=== PATIENT | female | born 1955 | race Caucasian/White ===

== ENCOUNTER 2016-12-02 09:49 | Emergency (ER) | payer BC ==
[2016-12-02 10:44] VITALS: BP 100/64
--- NOTE | 2016-12-02 12:12 | UC ---
Complaint Female HPI - HPI Summary HPI Summary: 5 days of external burning with urination---denies urgency frequency, fevers, chills, nausea, vomiting - History Of Current Complaint Chief Complaint: UCGU Stated Complaint: URINARY COMPLAINT Time Seen by Provider: 12/02/16 10:45 Hx Obtained From: Patient ?: No Onset/Duration: Sudden Onset, Lasting Days - 5, Still Present - seems to be a little better with increasing fluids Timing: Constant Severity Initially: Moderate Severity Currently: Mild Pain Intensity: 4 Pain Scale Used: 0-10 Numeric Character: Burning Aggravating Factor(s): Urination Alleviating Factor(s): Nothing Associated Signs And Symptoms: Negative: Fever, Back Pain, Vaginal Bleeding/ Discharge, Vaginal Discharge, Nausea, Vomiting(# Of Episodes =), Genital Swelling, Genital Blisters, Retained Foregin Body (Specify) - Allergies/Home Medications Allergies/Adverse Reactions: Allergies Allergy/AdvReac Type Severity Reaction Status Date / Time Ciprofloxacin [From Cipro] Allergy muscle Verified 12/02/16 10:44 cramping Prochlorperazine Allergy muscle Verified 12/02/16 10:44 [From Compazine] reaction Sulfamethoxazole Allergy muscle Verified 12/02/16 10:44 w/Trimethoprim cramping [From Septra] Home Medications: Home Medications Cranberry (Vaccinium Macrocarp [Cranberry] 500 mg PO DAILY 12/02/16 [History Confirmed 12/02/16] PMH/Surg Hx/FS Hx/Imm Hx Previously Healthy: Yes Endocrine History Of: Denies: Diabetes Cardiovascular History Of: Denies: Cardiac Disorders, Hypertension Respiratory History Of: Denies: Asthma Cancer History Of: Denies: Breast Cancer - Surgical History Surgical History: Yes Surgery Procedure, Year, and Place: T&A - Family History Known Family History: Positive: None - Social History Occupation: Employed Full-time Lives: With Family Alcohol Use: None Substance Use Type: None Smoking Status (MU): Never Smoked Tobacco Review of Systems Constitutional: Negative Skin: Negative Eyes: Negative ENT: Negative Respiratory: Negative Cardiovascular: Negative Gastrointestinal: Negative Genitourinary: Dysuria Motor: Negative Neurovascular: Negative Musculoskeletal: Negative Neurological: Negative Psychological: Negative All Other Systems Reviewed And Are Negative: Yes Physical Exam Triage Information Reviewed: Yes Appearance: Well-Appearing, No Pain Distress, Well-Nourished Vital Signs: Initial Vital Signs Temp 99.4 F 12/02/16 10:41 Pulse 75 12/02/16 10:41 Resp 16 12/02/16 10:41 BP 100/64 12/02/16 10:41 Pulse Ox 98 12/02/16 10:41 Vital Signs Reviewed: Yes Eye Exam: Normal Eyes: Positive: Conjunctiva Clear ENT Exam: Normal ENT: Positive: Normal ENT inspection, Hearing grossly normal. Negative: Nasal congestion, Nasal drainage, Tonsillar swelling, Tonsillar exudate, Trismus, Muffled/hoarse voice Dental Exam: Normal Neck exam: Normal Neck: Positive: Supple, Nontender, No Lymphadenopathy Respiratory Exam: Normal Respiratory: Positive: Chest non-tender, Lungs clear, Normal breath sounds, No respiratory distress, No accessory muscle use Cardiovascular Exam: Normal Cardiovascular: Positive: RRR, No Murmur, Pulses Normal, Brisk Capillary Refill Abdominal Exam: Normal Abdomen Description: Positive: Nontender, No Organomegaly, Soft Bowel Sounds: Positive: Present Musculoskeletal Exam: Normal Musculoskeletal: Positive: Strength Intact, ROM Intact Neurological Exam: Normal Neurological: Positive: Alert Psychological Exam: Normal Skin Exam: Normal UC Physical Exam Vital Signs On Initial Exam: Initial Vitals Temp Pulse Resp BP Pulse Ox 99.4 F 75 16 100/64 98 12/02/16 10:41 12/02/16 10:41 12/02/16 10:41 12/02/16 10:41 12/02/16 10:41 - Genitalia Exam Female Genitourinary: Normal External Exam, Normal Vaginal Exam Diagnostics - Laboratory Diagnostic Studies Completed/Ordered: UA - WNL Complaint Female Dx - Course Course Of Treatment: increase fluids, continue premarin, lab specimens sent will treat as needed based on lab specimens foolow for a routine disease education specialist appointment this week - Differential Dx/Diagnosis Differential Diagnosis/HQI/PQRI: Pelvic Inflammatory Disease, Sexually Transmitted Disease, Urinary Tract Infection, Other - vaginitis Provider Diagnoses: Dysuria Discharge - Discharge Plan Condition: Stable Disposition: HOME Patient Education Materials: Hydrocortisone (On the skin), Vaginitis (ED), Dysuria (ED) Referrals: Gema Teran MD [Medical Doctor] - 1 Week Justice Cabrera MD [Primary Care Provider] - Additional Instructions: The cause of your irritation is not clear---We have tests for yeast, trich, BV, and urine pending for you--We will call with any positive test results and call in appropriate treatments. This exam is not in place of your routine disease education specialist care that I would encourage you to get in the next couple of weeks
[2016-12-06 16:28] LABS: Mycoplasma hominis Result Negative; Mycoplasma hominis Source URINE; Ureaplasma Source URINE; Ureaplasma parvum PCR Negative; Ureaplasma urealyticum PCR Negative
== END 2016-12-02 12:37 | disposition home or self-care (01) ==
LOC: UCCORT 09:49
DX: R30.0 Dysuria (principal); R09.81 Nasal congestion; J03.90 Acute tonsillitis, unspecified; J35.02 Chronic adenoiditis; Z88.1 Allergy status to other antibiotic agents
CPT/HCPCS: 87086; 87480; 87491; 87510; 87591; 87661; 87798; 99212; G0463

== ENCOUNTER 2017-10-12 09:57 | Emergency (ER) | payer BC ==
--- NOTE | 2017-10-12 10:21 | UC ---
Complaint Female HPI - HPI Summary HPI Summary: 62 year old female presents with painful and increased frequency of urination. - History Of Current Complaint Stated Complaint: URINARY COMPLAINT Time Seen by Provider: 10/12/17 10:21 Hx Obtained From: Patient Onset/Duration: Sudden Onset Timing: Constant Severity Initially: Moderate Severity Currently: Moderate Pain Scale Used: 0-10 Numeric - 8 - Allergies/Home Medications Allergies/Adverse Reactions: Allergies Allergy/AdvReac Type Severity Reaction Status Date / Time Ciprofloxacin [From Cipro] Allergy muscle Verified 10/12/17 10:27 cramping Prochlorperazine Allergy muscle Verified 10/12/17 10:27 [From Compazine] reaction Sulfamethoxazole Allergy muscle Verified 10/12/17 10:27 w/Trimethoprim cramping [From Septra] PMH/Surg Hx/FS Hx/Imm Hx Previously Healthy: Yes - Surgical History Surgical History: Yes Surgery Procedure, Year, and Place: T&A - Family History Known Family History: Positive: None - Social History Alcohol Use: None Substance Use Type: None Smoking Status (MU): Never Smoked Tobacco Review of Systems Constitutional: Negative Skin: Negative Eyes: Negative ENT: Negative Respiratory: Negative Cardiovascular: Negative Gastrointestinal: Negative Genitourinary: Dysuria, Frequency, Urgency Motor: Negative Neurovascular: Negative Musculoskeletal: Negative Neurological: Negative Psychological: Negative All Other Systems Reviewed And Are Negative: Yes Physical Exam Triage Information Reviewed: Yes Vital Signs Reviewed: Yes Eye Exam: Normal ENT Exam: Normal Dental Exam: Normal Neck exam: Normal Neck: Positive: 1 Respiratory Exam: Normal Cardiovascular Exam: Normal Abdominal Exam: Normal Musculoskeletal Exam: Normal Neurological Exam: Normal Psychological Exam: Normal Skin Exam: Normal Complaint Female Dx - Differential Dx/Diagnosis Provider Diagnoses: dysuria. urinary frequency Discharge - Discharge Plan Condition: Stable Disposition: HOME Prescriptions: Nitrofurantoin Monohyd Macro [Macrobid] 100 mg PO BID #14 cap Patient Education Materials: Urinary Tract Infection in Women (ED) Referrals: Justice Cabrera MD [Primary Care Provider] -
[2017-10-12 10:27] VITALS: BP 121/79
--- NOTE | 2017-10-14 06:58 | UC ---
Progress - Progress Note Progress Note: Notify pt NO UTI she should STOP antibiotic and get rechecked if still symptomatic
== END 2017-10-12 10:50 | disposition home or self-care (01) ==
LOC: UCCORT 09:57
DX: R30.0 Dysuria (principal); R35.0 Frequency of micturition; Z88.3 Allergy status to other anti-infective agents
CPT/HCPCS: 81003; 87086; 99212; G0463

== ENCOUNTER 2019-04-11 17:38 | Emergency (ER) | payer OTHER ==
[2019-04-11 18:09] VITALS: BP 129/72
[2019-04-11 18:42] LABS: Influenza A Molecular NEGATIVE (Negative); Influenza B Molecular NEGATIVE (Negative)
--- NOTE | 2019-04-13 00:16 | UC ---
Throat Pain/Nasal Ayden HPI - HPI Summary HPI Summary: Pt states she has had sinus tightness for 3 days and thinks she has a sinus infection. She finished 15 days of radiation therapy for breast cancer this past Sunday (5 days ago). She denies any other symptoms of a URI, no cough, no urinary symptoms. She has felt increasingly fatigued since Sunday. Pt states she feels like when she had the flu in October and would like a flu test. - History of Current Complaint Chief Complaint: UCRespiratory Stated Complaint: FEVER/FLU SYMP Time Seen by Provider: 04/11/19 17:47 Hx Obtained From: Patient ?: No Onset/Duration: Gradual Onset Severity: Mild Pain Intensity: 5 Pain Scale Used: 0-10 Numeric Cough: None Associated Signs & Symptoms: Positive: Sinus Discomfort - Allergies/Home Medications Allergies/Adverse Reactions: Allergies Allergy/AdvReac Type Severity Reaction Status Date / Time ciprofloxacin Allergy malaise; Verified 04/11/19 17:52 severe family hx of stroke, muscle cramping prochlorperazine Allergy mask face, Verified 04/11/19 17:52 [From Compazine] risk pf tongue swallowing sulfamethoxazole Allergy hands Verified 04/11/19 17:52 [From Septra] started locking trimethoprim [From ] Allergy hands Verified 04/11/19 17:52 started locking Home Medications: Home Medications Ibuprofen TAB* [Motrin TAB* 400 MG] 400 mg PO ONCE PRN 04/11/19 [History Confirmed 04/11/19] Nutritional Supplements PO BID 04/11/19 [History] Osteopathic Powder 1 dose PO Q6H PRN 04/11/19 [History] Polyethylene Glycol 3350* [Miralax*] 17 gm PO QPM 04/11/19 [History Confirmed ] PMH/Surg Hx/FS Hx/Imm Hx Previously Healthy: Yes Cancer History: Breast Cancer - Surgical History Surgical History: Yes Surgery Procedure, Year, and Place: T&A, left breast lumpectomy, axillary sentinal node 11/2018 - Family History Known Family History: Positive: None - Social History Alcohol Use: None Substance Use Type: None Smoking Status (MU): Never Smoked Tobacco - Immunization History Most Recent Influenza Vaccination: never Review of Systems All Other Systems Reviewed And Are Negative: Yes ENT: Positive: Sinus Congestion - Pt describes as tightness in sinuses Is Patient Immunocompromised?: Yes - Just finished radiation therapy on Sunday...5 days ago Physical Exam Triage Information Reviewed: Yes Appearance: Well-Appearing, No Pain Distress, Well-Nourished Vital Signs: Initial Vital Signs Temp 100.5 F 04/11/19 17:59 Pulse 87 04/11/19 17:59 Resp 17 04/11/19 17:59 BP 129/72 04/11/19 17:59 Pulse Ox 99 04/11/19 17:59 Vital Signs Reviewed: Yes Eyes: Positive: Conjunctiva Clear ENT: Positive: Hearing grossly normal, Pharynx normal, TMs normal, Uvula midline Neck: Positive: Supple, Nontender, No Lymphadenopathy Respiratory: Positive: Lungs clear, Normal breath sounds, No respiratory distress, No accessory muscle use Cardiovascular: Positive: RRR, No Murmur, Pulses Normal, Brisk Capillary Refill Abdomen Description: Positive: Nontender, No Organomegaly, Soft Bowel Sounds: Positive: Present Musculoskeletal Exam: Normal Neurological Exam: Normal Psychological Exam: Normal Skin Exam: Normal Throat Pain/Nasal Course/Dx - Course Course Of Treatment: Rapid flu test was negative. Pt refused a CXR, initially refused a U/A but then consented after negative flu tests. U/A was negative. At this time I believe this is a viral illness. I do not feel she needs antibiotics at this time. I discussed with Dr. Jacques and if symptoms worsen, pt is to go to the ER. I explained to her we are unable to get any blood work reports back tonight. - Differential Dx/Diagnosis Provider Diagnosis: Viral illness Discharge - Sign-Out/Discharge Documenting (check all that apply): Patient Departure All imaging exams completed and their final reports reviewed: No Studies - Discharge Plan Condition: Fair Disposition: HOME Patient Education Materials: Viral Syndrome (ED) Referrals: Justice Cabrera MD [Primary Care Provider] - Additional Instructions: Increase fluids, rest, monitor your temperature at home. Keep your appointment on Sunday with Dr. Cabrera as previously scheduled. If symptoms get worse over the weekend or you have any difficulty breathing, higher fever, any vomiting or shortness of breath or chest pain go to the emergency room. - Billing Disposition and Condition Condition: FAIR Disposition: Home - Attestation Statements Provider Attestation: Per institutional requirements, I have reviewed the chart, however, I was not consulted specifically or made aware of this patient by the midlevel provider. I did not personally evaluate, interact with , or disposition this patient.
== END 2019-04-11 19:26 | disposition home or self-care (01) ==
LOC: UCCORT 17:38
DX: B34.9 Viral infection, unspecified (principal); C50.919 Malignant neoplasm of unspecified site of unspecified female breast; Z92.3 Personal history of irradiation; Z88.1 Allergy status to other antibiotic agents
CPT/HCPCS: 81003; 87086; 99211; G0463

== ENCOUNTER 2019-09-01 19:34 | Emergency (ER) | payer OTHER ==
[2019-09-01 19:49] VITALS: BP 110/74
--- NOTE | 2019-09-01 20:05 | UC ---
Skin Complaint HPI - HPI Summary HPI Summary: 63-year-old female who found a tick on her upper back proximally 2 hours ago which was removed by a friend. She is unsure how long the tick had been embedded however she states she was in the [place] yesterday. - History of Current Complaint Chief Complaint: UCSkin Time Seen by Provider: 09/01/19 19:48 Stated Complaint: TICK Hx Obtained From: Patient ?: No Onset/Duration: Gradual Onset Skin Exposure Onset/Duration: Days Ago Timing: Constant Onset Severity: Mild Current Severity: Mild Pain Intensity: 0 Location: Other - Upper back Aggravating Factor(s): Nothing Alleviating Factor(s): Nothing Associated Signs & Symptoms: Positive: Negative Related History: Possible Reaction to: Insect - Allergy/Home Medications Allergies/Adverse Reactions: Allergies Allergy/AdvReac Type Severity Reaction Status Date / Time ciprofloxacin Allergy malaise; Verified 09/01/19 19:41 severe family hx of stroke, muscle cramping prochlorperazine Allergy mask face, Verified 09/01/19 19:41 [From Compazine] risk pf tongue swallowing sulfamethoxazole Allergy hands Verified 09/01/19 19:41 [From Junra] started locking trimethoprim [From ] Allergy hands Verified 09/01/19 19:41 started locking Home Medications: Home Medications Lubiprostone [Amitiza] 24 mcg PO DAILY 09/01/19 [History Confirmed 09/01/19] PMH/Surg Hx/FS Hx/Imm Hx Previously Healthy: Yes Cancer History: Breast Cancer - Surgical History Surgical History: Yes Surgery Procedure, Year, and Place: T&A, left breast lumpectomy, axillary sentinal node 11/2018 - Family History Known Family History: Positive: None - Social History Alcohol Use: None Substance Use Type: None Smoking Status (MU): Never Smoked Tobacco - Immunization History Most Recent Influenza Vaccination: never Review of Systems All Other Systems Reviewed And Are Negative: Yes Skin: Positive: Other - Small reddened area upper back where tick was embedded. Is Patient Immunocompromised?: No Physical Exam Triage Information Reviewed: Yes Appearance: Well-Appearing, No Pain Distress, Well-Nourished Vital Signs: Initial Vital Signs Temp 98.4 F 09/01/19 19:43 Pulse 72 09/01/19 19:43 Resp 15 09/01/19 19:43 BP 110/74 09/01/19 19:43 Pulse Ox 100 09/01/19 19:43 Vital Signs Reviewed: No Skin: Positive: Other - Patient has a small reddened area approximately 4 mm in diameter upper back where the tick was embedded. There are no residual tick parts. She also wanted to check the back of her head because it just felt different to her. No tick was identified there. Course/Dx - Course Course Of Treatment: Patient is comfortable here. She does opt for the lactic doxycycline which was sent to the pharmacy. She is to follow-up with her primary care provider as needed over the next 2 or 3 weeks if she develops any fever, chills, body aches or rashes. - Diagnoses Provider Diagnosis: Tick bite of back Discharge ED - Sign-Out/Discharge Documenting (check all that apply): Patient Departure All imaging exams completed and their final reports reviewed: No Studies - Discharge Plan Condition: Good Disposition: HOME Prescriptions: DOXYcycline CAP(*) [DOXYcycline 100MG CAP(*)] 200 mg PO DAILY 1 Days #2 cap Patient Education Materials: Tick Bite (ED) Referrals: Justice Cabrera MD [Primary Care Provider] - Additional Instructions: No dairy products, antacids, multivitamins 2 hours before you take the doxycycline and 2 hours after you take it however take it with food. Definite follow-up with your primary care provider in 2 or 3 weeks if you develop any fever, chills, body aches or rashes. - Billing Disposition and Condition Condition: GOOD Disposition: Home
== END 2019-09-01 20:12 | disposition home or self-care (01) ==
LOC: UCCORT 19:34
DX: S20.469A Insect bite (nonvenomous) of unspecified back wall of thorax, initial encounter (principal); W57.XXXA Bitten or stung by nonvenomous insect and other nonvenomous arthropods, initial encounter; Y92.821 Forest as the place of occurrence of the external cause; Z88.1 Allergy status to other antibiotic agents; Z88.2 Allergy status to sulfonamides; Z88.8 Allergy status to other drugs, medicaments and biological substances
CPT/HCPCS: 99212; G0463